=== PATIENT | male | born 1955 | race Caucasian/White ===

== ENCOUNTER 2019-03-05 07:52 | Day surgery (SDC) | payer OTHER ==
[~2019-03-05] VITALS: Ht 175.3 cm; Wt 168.0 kg
[~2019-03-05 07:52] MED LIST: AMLO10 PO; ASPI81CH PO; FURO40 PO; LATA.005SO BOTHEYES
[2019-03-05] MEDS ORDERED: LOSA50 PO (08:30)
[2019-03-05] MEDS ORDERED: ATOR40TA (08:31)
[2019-03-05] MEDS ORDERED: MELO7.5 PO (08:31)
[2019-03-05] MEDS ORDERED: Hydrochlorothia25 MG (08:32)
[2019-03-05] MEDS ORDERED: METO25 (08:32)
--- NOTE | 2019-03-05 12:26 | NUR ---
2 cc air removed from tr-band.
--- NOTE | 2019-03-05 13:19 | NUR ---
PT DC'D BY WC BY SHYLA VALERO, DRIVING, SEE RHYTHM STRIP RECORD FOR VITAL SIGNS
== END 2019-03-05 13:20 | disposition home or self-care (01) ==
LOC: MHTC 07:52
PROC: B215YZZ Fluoroscopy of Left Heart using Other Contrast (ICD-10-PCS; principal; 2019-03-05)
PROC: B211YZZ Fluoroscopy of Multiple Coronary Arteries using Other Contrast (ICD-10-PCS; principal; 2019-03-05)
PROC: 4A023N7 Measurement of Cardiac Sampling and Pressure, Left Heart, Percutaneous Approach (ICD-10-PCS; principal; 2019-03-05)
DX: R07.89 Other chest pain (principal); I10 Essential (primary) hypertension; E78.5 Hyperlipidemia, unspecified; E66.01 Morbid (severe) obesity due to excess calories; G47.33 Obstructive sleep apnea (adult) (pediatric); Z79.82 Long term (current) use of aspirin; Z79.899 Other long term (current) drug therapy; Z87.891 Personal history of nicotine dependence; Z68.43 Body mass index [BMI] 50.0-59.9, adult
CPT/HCPCS: 85347; 93458; 99152; 99153; C1769; C1894; J1644; J2250; J3010; J7030; Q9967

== ENCOUNTER 2019-04-08 07:30 | Day surgery (SDC) | payer OTHER ==
[~2019-04-08 07:30] MED LIST changes: +ATOR40TA; +Hydrochlorothia25 MG; +LOSA50 PO; +MELO7.5 PO; +METO25
== END 2019-04-08 23:03 | disposition home or self-care (01) ==
LOC: WOUND 07:30
DX: L97.821 Non-pressure chronic ulcer of other part of left lower leg limited to breakdown of skin (principal); I87.2 Venous insufficiency (chronic) (peripheral); E66.01 Morbid (severe) obesity due to excess calories; I10 Essential (primary) hypertension; G47.33 Obstructive sleep apnea (adult) (pediatric); Z87.891 Personal history of nicotine dependence; Z68.43 Body mass index [BMI] 50.0-59.9, adult; Z79.82 Long term (current) use of aspirin; Z79.899 Other long term (current) drug therapy
CPT/HCPCS: G0463

== ENCOUNTER 2019-04-18 10:02 | Day surgery (SDC) | payer OTHER | END 2019-04-18 23:08 | disposition home or self-care (01) | LOC: WOUND 10:02 | DX: I96 Gangrene, not elsewhere classified (principal); L97.822 Non-pressure chronic ulcer of other part of left lower leg with fat layer exposed; I10 Essential (primary) hypertension; I87.2 Venous insufficiency (chronic) (peripheral); M10.9 Gout, unspecified; H26.9 Unspecified cataract; G47.33 Obstructive sleep apnea (adult) (pediatric); E66.01 Morbid (severe) obesity due to excess calories; Z68.43 Body mass index [BMI] 50.0-59.9, adult; Z79.82 Long term (current) use of aspirin; Z79.899 Other long term (current) drug therapy; M19.90 Unspecified osteoarthritis, unspecified site; Z91.018 Allergy to other foods ==

== ENCOUNTER 2019-04-21 13:26 | Day surgery (SDC) | payer OTHER | END 2019-04-21 22:43 | disposition home or self-care (01) | LOC: WOUND 13:26 | DX: I96 Gangrene, not elsewhere classified (principal); L97.821 Non-pressure chronic ulcer of other part of left lower leg limited to breakdown of skin; I87.2 Venous insufficiency (chronic) (peripheral); I10 Essential (primary) hypertension; M10.9 Gout, unspecified; M19.90 Unspecified osteoarthritis, unspecified site; H26.9 Unspecified cataract; G47.33 Obstructive sleep apnea (adult) (pediatric); E66.01 Morbid (severe) obesity due to excess calories; Z68.43 Body mass index [BMI] 50.0-59.9, adult; Z79.82 Long term (current) use of aspirin; Z79.899 Other long term (current) drug therapy | CPT/HCPCS: G0463 ==

== ENCOUNTER 2019-04-25 12:59 | Day surgery (SDC) | payer OTHER | END 2019-04-26 22:44 | disposition home or self-care (01) | LOC: WOUND 12:59 | DX: I96 Gangrene, not elsewhere classified (principal); L97.822 Non-pressure chronic ulcer of other part of left lower leg with fat layer exposed; I87.2 Venous insufficiency (chronic) (peripheral); I10 Essential (primary) hypertension; G47.33 Obstructive sleep apnea (adult) (pediatric); H26.9 Unspecified cataract; M10.9 Gout, unspecified; M19.90 Unspecified osteoarthritis, unspecified site; E66.01 Morbid (severe) obesity due to excess calories; Z68.43 Body mass index [BMI] 50.0-59.9, adult; Z79.82 Long term (current) use of aspirin; Z79.899 Other long term (current) drug therapy; Z91.018 Allergy to other foods ==

== ENCOUNTER 2019-05-09 13:02 | Day surgery (SDC) | payer OTHER | END 2019-05-09 22:56 | disposition home or self-care (01) | LOC: WOUND 13:02 | DX: L97.821 Non-pressure chronic ulcer of other part of left lower leg limited to breakdown of skin (principal); I87.2 Venous insufficiency (chronic) (peripheral); I10 Essential (primary) hypertension; E66.01 Morbid (severe) obesity due to excess calories; G47.33 Obstructive sleep apnea (adult) (pediatric); Z68.43 Body mass index [BMI] 50.0-59.9, adult; Z79.899 Other long term (current) drug therapy; Z79.82 Long term (current) use of aspirin | CPT/HCPCS: G0463 ==

== ENCOUNTER 2019-05-23 12:56 | Day surgery (SDC) | payer OTHER | END 2019-05-23 23:25 | disposition home or self-care (01) | LOC: WOUND 12:56 | DX: I96 Gangrene, not elsewhere classified (principal); L97.822 Non-pressure chronic ulcer of other part of left lower leg with fat layer exposed; I87.2 Venous insufficiency (chronic) (peripheral); I10 Essential (primary) hypertension; H26.9 Unspecified cataract; M10.9 Gout, unspecified; M19.90 Unspecified osteoarthritis, unspecified site; G47.33 Obstructive sleep apnea (adult) (pediatric); E66.01 Morbid (severe) obesity due to excess calories; Z68.43 Body mass index [BMI] 50.0-59.9, adult; Z79.82 Long term (current) use of aspirin; Z79.899 Other long term (current) drug therapy; Z91.018 Allergy to other foods | CPT/HCPCS: G0463 ==

== ENCOUNTER 2019-06-06 00:54 | Day surgery (SDC) | payer OTHER | END 2019-06-06 23:03 | disposition home or self-care (01) | LOC: WOUND 00:54 | DX: L97.821 Non-pressure chronic ulcer of other part of left lower leg limited to breakdown of skin (principal); I87.2 Venous insufficiency (chronic) (peripheral); I10 Essential (primary) hypertension; E66.01 Morbid (severe) obesity due to excess calories; G47.33 Obstructive sleep apnea (adult) (pediatric); Z68.43 Body mass index [BMI] 50.0-59.9, adult; Z79.899 Other long term (current) drug therapy | CPT/HCPCS: G0463 ==

== ENCOUNTER → 2020-03-19 | Outpatient (CLI) | payer OTHER ==
[2020-03-19 19:20] LABS: BASOPHILS ABSOLUTE AUTO 0.06 K/mm3 (0.00-0.23); BASOPHILS PERCENT AUTO 1 % (0-2); EOSINOPHILS ABSOLUTE AUTO 0.24 K/mm3 (0.00-0.68); EOSINOPHILS PERCENT AUTO 3 % (0-6); Hematocrit 37.3 % (37.0-53.0); Hemoglobin 12.6 g/dL (13.5-17.5); IMMATURE GRAN ABSOLUTE AUTO 0.01 K/mm3 (0.00-0.10); IMMATURE GRAN PERCENT AUTO 0 % (0-1); LYMPHOCYTES ABSOLUTE AUTO 2.41 K/mm3 (0.84-5.20); LYMPHOCYTES PERCENT AUTO 31 % (21-46); MONOCYTES ABSOLUTE AUTO 0.89 K/mm3 (0.16-1.47); MONOCYTES PERCENT AUTO 11 % (4-13); Mean Corpuscular HGB 28.3 pg (26.0-34.0); Mean Corpuscular HGB Conc 33.8 g/dL (31.5-36.5); Mean Corpuscular Volume 84 fL (80-100); Mean Platelet Volume 10.7 fL (9.1-12.4); NEUTROPHILS PERCENT AUTO 54 % (41-73); Platelet Count 236 K/mm3 (150-400); RDW Coefficient Variation 13.4 % (11.7-14.2); RDW Standard Deviation 40.8 fL (35.1-46.3); Red Blood Cell Count 4.46 M/mm3 (4.30-5.90); White Blood Cell Count 7.81 K/mm3 (4.00-11.30)
[2020-03-19 19:43] LABS: Alanine Aminotransfer (ALT/SGP 23 U/L (12-78); Albumin, Blood 3.4 g/dL (3.4-5.0); Albumin/Globulin Ratio 0.8 (0.8-1.8); Alk Phos 92 U/L (50-136); Anion Gap 10 mmol/L (6-16); Aspartate Aminotrans (AST/SGOT 18 U/L (12-37); Bilirubin, Total 0.6 mg/dL (0.1-1.0); Blood Urea Nitrogen 19 mg/dL (8-24); Bun/Creatinine Ratio 17.4 (12.0-20.0); CHOL/HDL RATIO 2.6; CO2, Blood 26 mmol/L (21-32); Calcium, Blood 8.9 mg/dL (8.5-10.1); Chloride, Blood 104 mmol/L (98-108); Cholesterol 135 mg/dL (50-200); Creatinine, Blood 1.09 mg/dL (0.60-1.20); Globulin, Blood 4.3 g/dL (2.2-4.0); Glomerular Filtration Rate >60 (60-); Glucose, Blood 101 mg/dL (70-99); HDL Cholesterol 51 mg/dL (>39); LDL/HDL RATIO 1.4; Low Density Lipoprotein Chol 70 mg/dL (0-110); Potassium, Blood 3.6 mmol/L (3.5-5.5); Sodium, Blood 140 mmol/L (136-145); Total Protein, Blood 7.7 g/dL (6.4-8.2); Triglycerides 71 mg/dL (30-160); Very Low Density Lipoprot Chol 14 mg/dL (6-32)
[2020-03-19 19:51] LABS: Prostate Specific Antigen 0.751 ng/mL (0.000-4.000); Thyroid Stimulating Hormone 0.619 uIU/mL (0.360-4.800)
== END | disposition home or self-care (01) ==
LOC: LAB 17:58 → LAB SHORT 17:58
PROVIDERS: Family Medicine
DX: Z12.5 Encounter for screening for malignant neoplasm of prostate (principal); Z79.899 Other long term (current) drug therapy
CPT/HCPCS: 80053; 80061; 84443; 85025; G0103

== ENCOUNTER → 2023-11-07 | Outpatient (CLI) | payer OTHER ==
[2023-11-07 11:49] LABS: BASOPHILS ABSOLUTE AUTO 0.07 K/mm3 (0.00-0.23); BASOPHILS PERCENT AUTO 1 % (0-2); EOSINOPHILS ABSOLUTE AUTO 0.31 K/mm3 (0.00-0.68); EOSINOPHILS PERCENT AUTO 4 % (0-6); Hematocrit 31.4 % (37.0-53.0); Hemoglobin 10.6 g/dL (13.5-17.5); IMMATURE GRAN ABSOLUTE AUTO 0.01 K/mm3 (0.00-0.10); IMMATURE GRAN PERCENT AUTO 0 % (0-1); LYMPHOCYTES ABSOLUTE AUTO 1.83 K/mm3 (0.84-5.20); LYMPHOCYTES PERCENT AUTO 26 % (21-46); MONOCYTES ABSOLUTE AUTO 0.72 K/mm3 (0.16-1.47); MONOCYTES PERCENT AUTO 10 % (4-13); Mean Corpuscular HGB 28.8 pg (26.0-34.0); Mean Corpuscular HGB Conc 33.8 g/dL (31.5-36.5); Mean Corpuscular Volume 85 fL (80-100); Mean Platelet Volume 10.3 fL (9.1-12.4); NEUTROPHILS ABSOLUTE AUTO 4.25 K/mm3 (1.96-9.15); NEUTROPHILS PERCENT AUTO 59 % (41-73); Platelet Count 241 K/mm3 (150-400); RDW Coefficient Variation 12.7 % (11.7-14.2); Red Blood Cell Count 3.68 M/mm3 (4.30-5.90); White Blood Cell Count 7.19 K/mm3 (4.00-11.30)
[2023-11-07 11:52] LABS: Albumin, Blood 3.3 g/dL (3.4-5.0); Albumin/Globulin Ratio 0.7 (0.8-1.8); Bilirubin, Total 0.6 mg/dL (0.1-1.0); Bun/Creatinine Ratio 24.3 (12.0-20.0); Creatinine, Blood 1.52 mg/dL (0.60-1.20); Globulin, Blood 4.5 g/dL (2.2-4.0); Total Protein, Blood 7.8 g/dL (6.4-8.2)
== END | disposition home or self-care (01) ==
LOC: LAB SHORT 10:39 → LAB 10:39
PROVIDERS: Family Medicine
DX: I10 Essential (primary) hypertension (principal)
CPT/HCPCS: 80053; 85025

== ENCOUNTER → 2024-02-07 | Outpatient (CLI) | payer OTHER ==
[2024-02-07 22:49] LABS: Bun/Creatinine Ratio 12.6 (12.0-20.0); Calcium, Blood 8.8 mg/dL (8.5-10.1); Creatinine, Blood 1.11 mg/dL (0.60-1.20); Potassium, Blood 3.9 mmol/L (3.5-5.5)
== END ==
LOC: LAB SHORT 17:57 → LAB 17:57
PROVIDERS: Family Medicine
DX: I51.89 Other ill-defined heart diseases (principal)
CPT/HCPCS: 80048

== ENCOUNTER → 2024-02-19 | Outpatient (CLI) | payer OTHER ==
[2024-02-19 19:31] LABS: BASOPHILS ABSOLUTE AUTO 0.07 K/mm3 (0.00-0.23); BASOPHILS PERCENT AUTO 1 % (0-2); EOSINOPHILS ABSOLUTE AUTO 0.34 K/mm3 (0.00-0.68); EOSINOPHILS PERCENT AUTO 4 % (0-6); Hematocrit 37.3 % (37.0-53.0); Hemoglobin 12.7 g/dL (13.5-17.5); IMMATURE GRAN ABSOLUTE AUTO 0.02 K/mm3 (0.00-0.10); IMMATURE GRAN PERCENT AUTO 0 % (0-1); LYMPHOCYTES ABSOLUTE AUTO 2.65 K/mm3 (0.84-5.20); LYMPHOCYTES PERCENT AUTO 30 % (21-46); MONOCYTES ABSOLUTE AUTO 0.92 K/mm3 (0.16-1.47); MONOCYTES PERCENT AUTO 11 % (4-13); Mean Corpuscular HGB 28.4 pg (26.0-34.0); Mean Corpuscular Volume 83 fL (80-100); Mean Platelet Volume 10.3 fL (9.1-12.4); NEUTROPHILS ABSOLUTE AUTO 4.78 K/mm3 (1.96-9.15); NEUTROPHILS PERCENT AUTO 54 % (41-73); Platelet Count 265 K/mm3 (150-400); RDW Standard Deviation 39.6 fL (35.1-46.3); Red Blood Cell Count 4.47 M/mm3 (4.30-5.90); White Blood Cell Count 8.78 K/mm3 (4.00-11.30)
[2024-02-19 19:59] LABS: Albumin, Blood 3.3 g/dL (3.4-5.0); Anion Gap 10 mmol/L (3-11); Blood Urea Nitrogen 19 mg/dL (8-24); Bun/Creatinine Ratio 15.3 (12.0-20.0); CHOL/HDL RATIO 2.1; CO2, Blood 25 mmol/L (21-32); Calcium, Blood 8.6 mg/dL (8.5-10.1); Chloride, Blood 105 mmol/L (98-108); Cholesterol 109 mg/dL (50-200); Creatinine, Blood 1.24 mg/dL (0.60-1.20); Glomerular Filtration Rate 64 (60-); Glucose, Blood 103 mg/dL (70-99); HDL Cholesterol 52 mg/dL (>39); LDL/HDL RATIO 0.8; Low Density Lipoprotein Chol 42 mg/dL (0-110); Phosphorus, Blood 3.1 mg/dL (2.5-4.9); Potassium, Blood 3.8 mmol/L (3.5-5.5); Sodium, Blood 136 mmol/L (136-145); Triglycerides 75 mg/dL (30-160); Very Low Density Lipoprot Chol 15 mg/dL (6-32)
[2024-02-19 20:09] LABS: Thyroid Stimulating Hormone 0.341 uIU/mL (0.360-4.800)
== END | disposition home or self-care (01) ==
LOC: LAB 18:30 → LAB SHORT 18:30
PROVIDERS: Family Medicine
DX: N18.31 Chronic kidney disease, stage 3a (principal); D63.1 Anemia in chronic kidney disease; Z79.899 Other long term (current) drug therapy
CPT/HCPCS: 80061; 80069; 82306; 84443; 85025

== ENCOUNTER 2024-09-25 11:06 | Day surgery (SDC) | payer OTHER ==
[~2024-09-25] VITALS: Ht 170.2 cm; Wt 168.0 kg
[~2024-09-25 11:06] MED LIST changes: +Balanced Salt Epinephrine Irrigation Solution 500 mL IR SCH; +Lidocaine HCl/Pf 1% 5 ML VIAL XX SCH; +Moxifloxacin HCL 0.5 MG/0.1 ML 0.4MLSYR RIGHTEYE SCH; +PHENYLEPHRINE\\TROPICAMIDE\\TETRACAINE OPHTHALMIC DILATING SOLN RIGHTEYE PRN; +Povidone-Iodine 450 DROP/30 ML Solution ONE; +Povidone-Iodine 450 DROP/30 ML Solution RIGHTEYE SCH; +Tetracaine HCl/Pf 0.5% Opth Soln 4 ml ONE; +Triamcinolone Inj Susp 40 MG / ML 1ML Vial INJ SCH; +Triamcinolone Inj Susp 40 MG / ML 1ML Vial ONE
[2024-09-25] MEDS ORDERED: NS 500 ML IV ONE (11:59)
[2024-09-25] MEDS ORDERED: Midazolam HCl 1MG / ML 2ML Vial ONE (12:13)
[2024-09-25 12:49] VITALS: BP 149/67
--- NOTE | 2024-09-25 12:56 | NUR ---
09/25/24 1256 Joslyn Mead NEIGHBOR CALLED AND NOTIFIED TO PICK PATIENT UP IN INTELLIGENCE INTERN AREA.
== END 2024-09-25 13:08 | disposition home or self-care (01) ==
LOC: ORSCSDS 11:06
PROVIDERS: Ophthalmology
PROC: 08RJ3JZ Replacement of Right Lens with Synthetic Substitute, Percutaneous Approach (ICD-10-PCS; principal; 2024-09-25 12:30)
DX: H25.811 Combined forms of age-related cataract, right eye (principal); Z96.1 Presence of intraocular lens; I10 Essential (primary) hypertension; E78.5 Hyperlipidemia, unspecified; G47.33 Obstructive sleep apnea (adult) (pediatric); E66.01 Morbid (severe) obesity due to excess calories; Z68.43 Body mass index [BMI] 50.0-59.9, adult; Z79.82 Long term (current) use of aspirin; Z79.899 Other long term (current) drug therapy
CPT/HCPCS: J2250; J3301; J7040; V2632

== ENCOUNTER → 2025-04-24 | Outpatient (CLI) | payer OTHER ==
[~2025-04-24] MED LIST changes: -Balanced Salt Epinephrine Irrigation Solution 500 mL IR SCH; -Lidocaine HCl/Pf 1% 5 ML VIAL XX SCH; -Moxifloxacin HCL 0.5 MG/0.1 ML 0.4MLSYR RIGHTEYE SCH; -PHENYLEPHRINE\\TROPICAMIDE\\TETRACAINE OPHTHALMIC DILATING SOLN RIGHTEYE PRN; -Povidone-Iodine 450 DROP/30 ML Solution ONE; -Povidone-Iodine 450 DROP/30 ML Solution RIGHTEYE SCH; -Tetracaine HCl/Pf 0.5% Opth Soln 4 ml ONE; -Triamcinolone Inj Susp 40 MG / ML 1ML Vial INJ SCH; -Triamcinolone Inj Susp 40 MG / ML 1ML Vial ONE
[2025-04-24 18:22] LABS: Alanine Aminotransfer (ALT/SGP 27 U/L (12-78); Albumin, Blood 3.4 g/dL (3.4-5.0); Albumin/Globulin Ratio 0.8 (0.8-1.8); Anion Gap 9 mmol/L (3-11); Aspartate Aminotrans (AST/SGOT 14 U/L (12-37); Bilirubin, Total 0.9 mg/dL (0.1-1.0); Blood Urea Nitrogen 16 mg/dL (8-24); CHOL/HDL RATIO 2.5; CO2, Blood 24 mmol/L (21-32); Calcium, Blood 8.9 mg/dL (8.5-10.1); Chloride, Blood 108 mmol/L (98-108); Cholesterol 106 mg/dL (50-200); Creatinine, Blood 1.20 mg/dL (0.60-1.20); Globulin, Blood 4.1 g/dL (2.2-4.0); Glucose, Blood 111 mg/dL (70-99); HDL Cholesterol 43 mg/dL (>39); LDL/HDL RATIO 1.1; Low Density Lipoprotein Chol 47 mg/dL (0-110); Potassium, Blood 4.0 mmol/L (3.5-5.5); Sodium, Blood 137 mmol/L (136-145); Total Protein, Blood 7.5 g/dL (6.4-8.2); Triglycerides 82 mg/dL (30-160); Very Low Density Lipoprot Chol 16 mg/dL (6-32)
== END ==
LOC: LAB 15:50 → LAB SHORT 15:50
PROVIDERS: Family Medicine
DX: E78.2 Mixed hyperlipidemia (principal); E66.2 Morbid (severe) obesity with alveolar hypoventilation; R73.03 Prediabetes
CPT/HCPCS: 80053; 80061; 83036